=== PATIENT | female | born 1960 | race Caucasian/White ===

== ENCOUNTER 2016-08-04 17:45 | Emergency (ER) | payer OTHER ==
--- NOTE | ~2016-08-04 | CR72 ---
[facility] A Service of [facility] & [facility] RADIOLOGY TEXT RESULTS PATIENT: CASIE COLLADO LOCATION: [facility] : 56 UNIT #: [id number] AGE: [address]: Samy Servin MD SEX: F ORDER DR: [id number] [facility] [address] [place], [place] [address] [id number] E MR#: [id number] Acc #: [id number] NAME: CASIE COLLADO : 1960 SEX: F STUDY DATE/TIME: 08/04/2016 18:02 UNIT: [facility] ROOM: STUDY DESCRIPTION: CR Chest Single View Portable Attending Physician: Samy Servin M.D. Ordering Physician: Ed Doctor [id number] [facility] Primary Care Physician: Sergio Rushing A.P.R.N. MEDICAL IMAGING REPORT This report is preliminary unless electronic signature is present EXAM Portable chest HISTORY Shortness of air, cough for 2 days. COMPARISON 05/31/2010 FINDINGS AP portable view of the chest demonstrates moderate lung volumes. No infiltrates or effusions. Heart, mediastinum and great vessels unremarkable. Calcified granuloma left lower lobe. Postsurgical changes lower cervical spine. IMPRESSION No active disease. Dictated by... Funmilayo Basurto M.D. THIS IS AN ELECTRONICALLY VERIFIED REPORT Funmilayo Basurto M.D. at 08/05/2016 8:42 PM Rosalinda TD: 08/05/2016 09:08 JOB #: [id number] MEDICAL IMAGING REPORT COPY
[~2016-08-04 17:45] MED LIST: ASACOL400 MG PO; BACTRIM DS TABL1 TAB PO; CARDIZEM60 M1 PO; CARDIZEM60 MG PO; CIPRO PO; DEXILANT60 MG PO; DICYCLOMINE HCL20 MG PO; DOXYCYCLINE PO; EFFEXOR XR PO; FLAGYL PO; GAS-X125 MG; HYDROCODON-ACE1 EAC1 PO; HYDROCODON-ACE1 EAC5 PO; HYDROCODONE-APA1 T41 PO; IBUPROFEN PO; IRON325 ( 651 PO; LORTAB 10/500 T1 TAB PO; MACROBID100 M1 PO; MEDROL PO; MOBIC; MOBIC15 MG PO; ORUDIS75 M1 PO; PERCOCET PO; PHENERGAN25 MG PO; PREDNISONE PO; PRILOSEC PO; PROTONIX PO; PYRIDIUM PO; REQUIP1 MG PO; ROBITUSSIN AC; ROBITUSSIN COUG1 CAP PO; TALWIN PO; TIGAN PO; TYLOX 5/500 CAP1 CAP PO; VICODIN 5/1 TAB 5/50; VICODIN 5/500 T1 TAB PO; VIT B-12 PO; VITAMIN D1000 UNIT PO; ZOCOR20 MG PO; ZOFRAN PO; [UNRECOGNIZED DRUG - OTHER] PO
[2016-08-04 18:10] LABS: BASOPHIL% 0.9 % (0-2.5); EOSINOPHIL% 0.3 % (0.0-7.0); HEMATOCRIT 38.6 % (35.0-45.0); HEMOGLOBIN 12.4 gm/dL (12.0-16.0); LYMPHOCYTE# 1.2 X10e3 (1.0-3.5); LYMPHOCYTE% 32.2 % (17.0-45.0); MEAN CELL VOLUME 79.1 FL (83-96); MEAN CORPUSCULAR HEMOGLOBIN 25.4 PG (28-34); MEAN CORPUSCULAR HGB CONC 32.1 g/dL (30-36); MEAN PLATELET VOLUME 7.6 FL (6.5-11.5); MONOCYTE# 0.5 X10e3 (0-1.0); MONOCYTE% 13.1 % (3.0-12.0); NEUTROPHIL# 2.1 X10e3 (1.5-7.1); NEUTROPHIL% 53.5 % (40-75); PLATELET COUNT 208 X10e3 (140-420); RED BLOOD COUNT 4.88 X10e (3.90-5.30); RED CELL DISTRIBUTION WIDTH 15.2 % (11.0-15.5); WHITE BLOOD COUNT 3.9 X10e3 (4.0-10.5)
[2016-08-04 18:21] LABS: INFLUENZA A POS (NEG); INFLUENZA B NEG (NEG)
[2016-08-04 18:24] LABS: DIFF IND NO
[2016-08-04 18:29] LABS: ALBUMIN SERUM 3.8 g/dL (3.5-5.0); ALKALINE PHOSPHATASE 78 U/L (32-92); ALT (SGPT) 32 U/L (10-40); AST (SGOT) 30 U/L (10-42); BILIRUBIN,TOTAL 0.5 mg/dL (0.2-2.0); BLOOD UREA NITROGEN 24 mg/dL (9-23); CALCIUM SERUM 9.3 mg/dL (8.4-10.2); CARBON DIOXIDE 21 mmol/L (22-31); CHLORIDE 104 mmol/L (100-111); GLOM FILT RATE Estimated ABOVE60 mL/min (>60); GLUCOSE FASTING 92 mg/dL (70-110); POTASSIUM 3.1 mmol/L (3.5-5.1); PROTEIN TOTAL SERUM 7.3 g/dL (6.0-8.3); SODIUM 137 mmol/L (135-145)
== END 2016-08-04 19:00 | disposition home or self-care (01) ==
LOC: CED 17:45
PROVIDERS: Emergency Medicine
DX: J10.1 Influenza due to other identified influenza virus with other respiratory manifestations (principal); Z90.49 Acquired absence of other specified parts of digestive tract; Z90.710 Acquired absence of both cervix and uterus; Z88.0 Allergy status to penicillin; Z88.5 Allergy status to narcotic agent; Z88.1 Allergy status to other antibiotic agents; Z88.8 Allergy status to other drugs, medicaments and biological substances
CPT/HCPCS: 36415; 71010; 80053; 85025; 87804; 99283

== ENCOUNTER 2016-09-18 22:11 | Emergency (ER) | payer OTHER ==
--- NOTE | ~2016-09-18 | CR229 ---
[facility] A Service of [facility] & [facility] RADIOLOGY TEXT RESULTS PATIENT: CASIE COLLADO LOCATION: [facility] : 56 UNIT #: [id number] AGE: [address]: Michele Lora MD SEX: F ORDER DR: [id number] [facility] [address] [place], [place] [address] [id number] E MR#: [id number] Acc #: [id number] NAME: CASIE COLLADO : 1960 SEX: F STUDY DATE/TIME: 09/18/2016 21:50 UNIT: [facility] ROOM: STUDY DESCRIPTION: CR Shoulder Min 2 View Lt Attending Physician: Vasile Lora M.D. Ordering Physician: Karthik Doherty M.D. Primary Care Physician: Sergio Rushing A.P.R.N. MEDICAL IMAGING REPORT This report is preliminary unless electronic signature is present EXAM Left shoulder 3 views HISTORY Shoulder pain after fall 1 month ago. FINDINGS 3 views of left shoulder demonstrate normal bone alignment. No fracture, joint space narrowing or dislocation. Lower cervical fusion. IMPRESSION No acute finding. Satisfactory shoulder alignment. No fracture. Dictated by... Elias Arthur M.D. THIS IS AN ELECTRONICALLY VERIFIED REPORT Elias Arthur M.D. at 09/19/2016 10:57 PM DFL/bret TD: 09/19/2016 01:11 JOB #: [id number] MEDICAL IMAGING REPORT Page 1 of 1 COPY
== END 2016-09-18 23:30 | disposition home or self-care (01) ==
LOC: CED 22:11
DX: M25.512 Pain in left shoulder (principal); Z90.710 Acquired absence of both cervix and uterus; Z88.0 Allergy status to penicillin; Z88.5 Allergy status to narcotic agent
CPT/HCPCS: 73030; 99283

== ENCOUNTER 2017-01-15 08:59 | Emergency (ER) | payer OTHER ==
[~2017-01-15] VITALS: Ht 162.6 cm; Wt 78.0 kg
--- NOTE | ~2017-01-15 | CT4 ---
[facility] A Service of [facility] & [facility] RADIOLOGY TEXT RESULTS PATIENT: CASIE COLLADO LOCATION: [facility] : 56 UNIT #: [id number] AGE: [address]: Jose R Chandler MD SEX: F ORDER DR: [id number] [facility] [address] [place], [place] [address] [id number] E MR#: [id number] Acc #: [id number] NAME: CASIE COLLADO : 1960 SEX: F STUDY DATE/TIME: 01/15/2017 10:17 UNIT: [facility] ROOM: STUDY DESCRIPTION: CT Abd and Pelv Wo Cont Attending Physician: Jose R Chandler M.D. Ordering Physician: Jose R Chandler M.D. Primary Care Physician: Sergio Rushing A.P.R.N. MEDICAL IMAGING REPORT This report is preliminary unless electronic signature is present EXAM CT scan of the abdomen and pelvis without contrast, 01/15/2017. INDICATIONS Right flank pain and nausea 3 days. History of kidney stones. COMPARISON Comparison study 11/29/2016. TECHNIQUE Axial 3-mm images were obtained through the abdomen and pelvis without IV or oral contrast. Sagittal and coronal reconstructions were generated. This CT exam was performed with one or more of the following radiation dose reduction techniques: automatic exposure control, adjustment of mA and/or kV according to patient size, and iterative reconstruction. FINDINGS Lung bases are clear except for a calcified granuloma. The liver is normal. The gallbladder has been removed. The spleen, pancreas and adrenal glands are normal. The left kidney shows mild atrophy. There are at least 2 stones in the left kidney, measuring up to 5 mm in diameter. The right kidney has a 3-mm nonobstructing stone. There is no hydronephrosis. No ureteral stone is visible. The bowel is normal except postop changes. The bladder is normal, and the uterus has been removed. There are no adnexal masses. The bones are unremarkable. IMPRESSION There are small nonobstructing bilateral renal stones. No ureteral stone or hydronephrosis is identified. Prior cholecystectomy and hysterectomy. STS. [facility] A Service of [facility] & [facility] RADIOLOGY TEXT RESULTS PATIENT: CASIE COLLADO LOCATION: [facility] : 56 UNIT #: [id number] AGE: [address]: Jose R Chandler MD SEX: F ORDER DR: Dictated by... Rao Winter M.D. THIS IS AN ELECTRONICALLY VERIFIED REPORT Rao Winter M.D. at 01/17/2017 6:16 AM Vani TD: 01/16/2017 12:48 JOB #: [id number] MEDICAL IMAGING REPORT Page 1 of 1 COPY
[2017-01-15 10:48] LABS: URINE SOURCE CLEAN CATCH
[2017-01-15 10:56] LABS: URINE APPEARANCE CLEAR; URINE BILIRUBIN NEG (NEG); URINE BLOOD NEG (NEG); URINE COLOR YELLOW; URINE GLUCOSE NEG (NEG); URINE KETONE NEG (NEG); URINE LEUKOCYTE ESTERASE 1+ (NEG); URINE NITRATE NEG (NEG); URINE PH 5.5 (5-8); URINE PROTEIN NEG (NEG); URINE SPECIFIC GRAVITY 1.015 (1.003-1.035); URINE UROBILINOGEN 0.2 MG/DL (NEG)
[2017-01-15 10:59] LABS: CULTURE INDICATED? YES; URBCS1 AUWI 0-2 /[HPF] (0-2); URINE BACTERIA AUWI 1+ (NEGATIVE); URINE SQUAMOUS EPITHELIAL CELL OCC /[HPF]
== END 2017-01-15 12:05 | disposition home or self-care (01) ==
LOC: CED 08:59
PROVIDERS: Emergency Medicine
DX: S39.012A Strain of muscle, fascia and tendon of lower back, initial encounter (principal); N30.00 Acute cystitis without hematuria; Z88.0 Allergy status to penicillin; Z88.1 Allergy status to other antibiotic agents; Z88.5 Allergy status to narcotic agent; Z88.8 Allergy status to other drugs, medicaments and biological substances; X58.XXXA Exposure to other specified factors, initial encounter
CPT/HCPCS: 36415; 74176; 81003; 87086; 87088; 87186; 96361; 96374; 99284; J1885

== ENCOUNTER 2017-01-18 09:46 | Emergency (ER) | payer OTHER ==
[~2017-01-18] VITALS: Ht 162.6 cm; Wt 78.0 kg
== END 2017-01-18 10:35 | disposition home or self-care (01) ==
LOC: CED 09:46 → CFTX 09:46
DX: N39.0 Urinary tract infection, site not specified (principal); Z90.49 Acquired absence of other specified parts of digestive tract; Z88.0 Allergy status to penicillin; Z88.1 Allergy status to other antibiotic agents; Z88.8 Allergy status to other drugs, medicaments and biological substances
CPT/HCPCS: 99283